=== PATIENT | female | born 1955 | race African-American/Black ===

== ENCOUNTER 2024-05-11 21:14 | Emergency (ER) | payer OTHER, MEDICARE, MEDICAID, SELFPAY ==
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
[2024-05-11 21:33] VITALS: BP 140/89; PULSE 87; RESP 18; TEMP 36.4; O2SAT 96; BMI 25.8
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
[2024-05-12 00:16] VITALS: BP 140/89; PULSE 87; RESP 18; TEMP 36.4; O2SAT 96
--- NOTE | 2024-05-12 00:16 | PC.NURSE ---
Alli stewart by in [facility] cleared for [facility].
== END 2024-05-12 00:35 | disposition home or self-care (01) ==
LOC: HO.ED 05-12 00:29
PROVIDERS: Emergency Provider Emergency Medicine
DX: S09.90XA Unspecified injury of head, initial encounter (principal); R51.9 Headache, unspecified; V43.62XA Car passenger injured in collision with other type car in traffic accident, initial encounter; Y93.9 Activity, unspecified; Y92.488 Other paved roadways as the place of occurrence of the external cause; Y99.8 Other external cause status
CPT/HCPCS: 70450; 99282; 99284

== ENCOUNTER → 2024-05-11 22:00 | Outpatient (BNV) | payer MEDICARE, MEDICAID, SELFPAY | PROVIDERS: Visit Provider Radiology Diagnostic Radiology | DX: S09.90XA Unspecified injury of head, initial encounter (principal) | CPT/HCPCS: 70450 ==